=== PATIENT | female | born 1935 | race Caucasian/White ===

== ENCOUNTER 2019-02-09 09:45 | Inpatient (IN) | payer OTHER ==
[~2019-02-09] VITALS: Ht 157.5 cm; Wt 63.5 kg
[2019-02-09] MEDS ORDERED: SYNTHROID88 MCG PO (14:28)
[2019-02-09] MEDS ORDERED: FENOFIBRATE160 MG PO (14:29)
[2019-02-09] MEDS ORDERED: LOTREL 5-20 MG1 CAP PO (14:29)
[2019-02-09] MEDS ORDERED: MULTIPLE VITAM1 EACH PO (14:30)
[2019-02-09] MEDS ORDERED: ARICEPT10 MG PO (14:30)
[2019-02-17] MEDS ORDERED: COLACE100 MG PO (17:47)
[2019-02-17] MEDS ORDERED: TYLENOL EXTRA500 MG PO (17:47)
== END 2019-02-17 18:05 | disposition home or self-care (01) | DRG 334 ==
LOC: ADM 09:45 → EDSTATUS 09:45 → O/R 02-14 07:21 → SURG 02-14 07:21 → SURH 02-14 09:45 → SURG 02-14 14:53
PROVIDERS: ADMIT Surgery
PROC: 0KXM0ZZ Transfer Perineum Muscle, Open Approach (ICD-10-PCS; 2019-02-14)
PROC: 0DJD8ZZ Inspection of Lower Intestinal Tract, Via Natural or Artificial Opening Endoscopic (ICD-10-PCS; 2019-02-14)
PROC: 0DBP4ZZ Excision of Rectum, Percutaneous Endoscopic Approach (ICD-10-PCS; principal; 2019-02-14 10:30)
DX: K62.3 Rectal prolapse (principal); R15.9 Full incontinence of feces; I11.9 Hypertensive heart disease without heart failure; E03.8 Other specified hypothyroidism; F03.90 Unspecified dementia, unspecified severity, without behavioral disturbance, psychotic disturbance, mood disturbance, and anxiety; I12.9 Hypertensive chronic kidney disease with stage 1 through stage 4 chronic kidney disease, or unspecified chronic kidney disease; N18.3 Chronic kidney disease, stage 3 (moderate)

== ENCOUNTER 2020-02-12 13:54 | Outpatient (CLI) | payer OTHER ==
[~2020-02-12 13:54] MED LIST: ARICEPT10 MG PO; COLACE100 MG PO; FENOFIBRATE160 MG PO; LOTREL 5-20 MG1 CAP PO; MULTIPLE VITAM1 EACH PO; SYNTHROID88 MCG PO; TYLENOL EXTRA500 MG PO
[2020-02-13] MEDS ORDERED: DITROPAN XL5 MG PO (14:56)
== END 2020-02-12 14:07 | disposition home or self-care (01) ==
LOC: RAD 13:54
PROVIDERS: ATTEND Surgery
DX: K62.3 Rectal prolapse (principal); R15.9 Full incontinence of feces

== ENCOUNTER 2020-02-13 06:00 | Outpatient (CLI) | payer OTHER ==
[~2020-02-13] VITALS: Ht 160 cm; Wt 55.3 kg
[2020-02-13] MEDS ORDERED: DITROPAN XL5 MG PO (14:56)
== END 2020-02-13 06:10 | disposition home or self-care (01) ==
LOC: LAB 06:00 → SURH 02-16 08:45 → EDSTATUS 02-16 11:00 → SURH 02-16 11:00
PROVIDERS: ATTEND Surgery
DX: K62.3 Rectal prolapse (principal); R15.9 Full incontinence of feces; Z01.812 Encounter for preprocedural laboratory examination